=== PATIENT | female | born 1975 | race Two or more races ===

== ENCOUNTER 2024-01-16 08:09 | Emergency (ER) | payer MEDICAID ==
[~2024-01-16] VITALS: Ht 167.6 cm; Wt 165.0 kg
[2024-01-16 08:13] VITALS: O2SAT 99
[2024-01-16 08:14] VITALS: BP 181/96; PULSE 91; RESP 16; TEMP 98.3; O2SAT 99
[2024-01-16] MEDS ORDERED: ASPIRIN 325MG EC TABLET PO ONE (08:30)
[2024-01-16] MEDS ORDERED: NITROGLYCERIN 0.4MG TABLET SL SL ONE (08:30)
[2024-01-16] MEDS ORDERED: ASPIRIN 325MG EC TABLET PO SCH (09:45)
[2024-01-16 09:56] LABS: BASOPHILS % 1.4 % (0.0-2.0); DIFFERENTIAL COMMENT 0; EOSINOPHILS % 1.8 % (0.0-5.0); HEMATOCRIT. 40.3 % (36.0-48.0); HEMOGLOBIN. 12.3 g/dL (12.0-16.0); LYMPHOCYTES % 37.5 % (20.0-50.0); MEAN CORPUSCULAR HEMOGLOBIN 22.4 pg (28.0-32.0); MEAN CORPUSCULAR HGB CONC 30.4 g/dL (31.0-37.0); MEAN CORPUSCULAR VOLUME 73.7 fL (81.0-99.0); MEAN PLATELET VOLUME 9.2 fl (7.4-10.4); MONOCYTES % 5.7 % (2.0-8.0); NEUTROPHILS % 53.6 % (40.0-76.0); PLATELET 261 x1000/uL (130-400); RED BLOOD CELL COUNT 5.48 mill/uL (4.2-5.4); RED CELL DISTRIBUTION WIDTH 17.9 % (11.6-14.6); WHITE BLOOD COUNT 7.3 x1000/uL (4.5-11.0)
[2024-01-16 10:05] LABS: CHLORIDE 104 mEq/L (98-107); POTASSIUM 3.8 mEq/L (3.5-5.1); SODIUM 140 mEq/L (136-145)
[2024-01-16 10:07] LABS: CALCIUM 9.6 mg/dL (8.7-10.4); CARBON DIOXIDE 30 mEq/L (21-32)
[2024-01-16 10:09] LABS: PROTHROMBIN TIME 10.9 sec (9.6-11.0)
[2024-01-16 10:12] LABS: CREATININE 0.8 mg/dL (0.6-1.0); GLUCOSE 101 mg/dL (70-105); TROPONIN I HIGH SENSITIVITY 13 ng/L (3.0-34); UREA NITROGEN BLOOD 8 mg/dL (9-23)
[2024-01-16 10:13] LABS: ALBUMIN 4.3 g/dL (3.2-4.8)
[2024-01-16 10:14] LABS: ALANINE AMINOTRANSFERASE 10 IU/L (10-49); ASPARTATE AMINOTRANSFERASE 13 IU/L (<34); BILIRUBIN DIRECT 0.1 mg/dL (<=3.0); BILIRUBIN TOTAL 0.5 mg/dL (0.1-1.0); PROTEIN TOTAL 7.5 g/dL (6.0-8.3)
[2024-01-16 10:24] LABS: HCG SCREEN NEGATIVE
== END 2024-01-16 17:14 | disposition left against medical advice (07) ==
LOC: ER 08:09 → CANBEDREQ 14:52 → ER 17:14
DX: R07.9 Chest pain, unspecified (principal); E11.9 Type 2 diabetes mellitus without complications; I10 Essential (primary) hypertension
CPT/HCPCS: 36415; 71045; 80048; 80076; 84484; 84703; 85025; 93005; 99291